=== PATIENT | female | born 1975 | race Hispanic/Latino ===

== ENCOUNTER 2024-11-19 12:14 | Emergency (ER) | payer OTHER ==
[~2024-11-19] VITALS: Ht 160 cm; Wt 86.2 kg
[2024-11-19 12:45] VITALS: PULSE 77; RESP 16; TEMP 98.6
[2024-11-19 13:09] LABS: BASOPHILS % 0.6 % (0.0-1.0); EOSINOPHILS # (AUTO) 0.1 (0.0-0.4); EOSINOPHILS % 1.1 % (0.0-6.0); HEMATOCRIT 39.2 % (34.2-44.1); HEMOGLOBIN 13.3 g/dL (12.0-16.0); LYMPHOCYTES # (AUTO) 1.3 (1.0-3.2); LYMPHOCYTES % 18.3 % (18.0-39.1); MEAN CORPUSCULAR HEMOGLOBIN 29.9 pg (28-32); MEAN CORPUSCULAR HGB CONC 33.9 g/dL (31-35); MEAN CORPUSCULAR VOLUME 88.1 fL (81-99); MONOCYTES # (AUTO) 0.4 (0.2-0.8); MONOCYTES % 5.5 % (4.4-11.3); NEUTROPHILS # (AUTO) 5.2 (2.1-6.9); NEUTROPHILS % 74.1 % (38.7-80.0); PLATELET COUNT 388 x10e3/uL (140-360); RED BLOOD COUNT 4.45 x10e6/uL (3.6-5.1); RED CELL DISTRIBUTION WIDTH 13.3 % (11.7-14.4); WHITE BLOOD COUNT 7.03 x10e3/uL (4.8-10.8)
[2024-11-19] MEDS: KETOROLAC TROMETHAMINE 30 MG/ML VIAL IV STA (13:14)
[2024-11-19 13:27] LABS: ALBUMIN/GLOBULIN RATIO 1.1 (0.8-2.0); ANION GAP 14.4 mmol/L (8-16); BILIRUBIN,TOTAL 0.9 mg/dL (0.2-1.2); CALCIUM 9.2 mg/dL (8.4-10.2); CREATININE, SERUM 0.8 mg/dL (0.57-1.11); POTASSIUM 4.4 mmol/L (3.5-5.1); TOTAL PROTEIN 7.7 g/dL (6.5-8.1)
[2024-11-19 14:24] VITALS: BP 120/78; PULSE 78; RESP 16; TEMP 98.7; O2SAT 97
== END 2024-11-19 14:26 | disposition home or self-care (01) ==
LOC: ER 12:22
DX: R10.13 Epigastric pain (principal); S39.011A Strain of muscle, fascia and tendon of abdomen, initial encounter; X50.0XXA Overexertion from strenuous movement or load, initial encounter; I10 Essential (primary) hypertension; R73.03 Prediabetes
CPT/HCPCS: 36415; 80053; 83690; 85025; 93005; 99283; J1885